=== PATIENT | female | born 1995 | race Two or more races ===

== ENCOUNTER 2021-06-10 19:43 | Emergency (ER) | payer OTHER ==
[~2021-06-10] VITALS: Ht 160 cm; Wt 77.1 kg
[2021-06-10 20:44] LABS: Basophils # (auto) 0 10 ^3/uL (0-0.2); Basophils % (auto) 0.4 % (0.0-2.0); Eosinophils # (auto) 0.2 10 ^3/uL (0-0.8); Eosinophils % (auto) 2.4 % (0.0-7.0); Hemoglobin 13.2 g/dL (12.2-16.2); Lymphocytes % (auto) 30.9 % (10.0-50.0); Mean Corpuscular Hemoglobin 29.9 pg (28.0-32.0); Mean Corpuscular Hgb Conc. 33.7 g/dL (32.0-36.0); Mean Corpuscular Volume 88.6 fL (80.0-100.0); Monocytes # (auto) 0.6 10 ^3/uL (0-1.3); Monocytes % (auto) 6.6 % (0.0-12.0); Neutrophils # (auto) 5.7 10 ^3/uL (1.6-8.6); Neutrophils % (auto) 59.7 % (37.0-80.0); Nucleated Red Blood Cells % 0.1 %; Red Cell Distribution Width 13.4 % (11.8-14.3); White Blood Cell 9.6 10^3/uL (4.4-10.8)
[2021-06-10 20:57] LABS: Urine Bacteria FEW /hpf (None Seen); Urine Blood TRACE /uL (Negative); Urine Specific Gravity 1.026 (1.001-1.035); Urine WBC 2 /hpf (0 - 5)
[2021-06-10] MEDS ORDERED: IBUPROFEN 600 MG TAB PO ONE (23:00)
[2021-06-11 01:46] VITALS: BP 153/72
== END 2021-06-11 01:53 | disposition home or self-care (01) ==
LOC: ER 19:43
DX: N83.201 Unspecified ovarian cyst, right side (principal); Z90.49 Acquired absence of other specified parts of digestive tract; Z88.8 Allergy status to other drugs, medicaments and biological substances; Z88.0 Allergy status to penicillin
CPT/HCPCS: 36415; 76830; 76856; 81001; 84702; 85025

== ENCOUNTER 2022-08-31 12:38 | Emergency (ER) | payer MEDICAID, OTHER ==
[~2022-08-31] VITALS: Ht 160 cm; Wt 84.7 kg
[2022-08-31 13:01] VITALS: BP 126/71
[2022-08-31 13:28] LABS: Urine Bacteria FEW /hpf (None Seen); Urine Blood TRACE /uL (Negative); Urine Hyaline Cast FEW /lpf (0 - 2); Urine Mucus FEW (None Seen); Urine Specific Gravity 1.025 (1.001-1.035); Urine WBC 22 /hpf (0 - 5)
[2022-08-31] MEDS ORDERED: METR500T14 PO (17:14)
[2022-08-31] MEDS ORDERED: DOXY-346 PO (17:14)
[2022-08-31] MEDS ORDERED: DOXYCYCLINE 100 MG TAB/CAP PO ONE (17:15)
[2022-08-31] MEDS ORDERED: cefTRIAXone W LIDOCAINE 500 MG IM IM ONE (17:15)
== END 2022-08-31 20:18 | disposition home or self-care (01) ==
LOC: ER 12:38
DX: N89.8 Other specified noninflammatory disorders of vagina (principal); Z90.49 Acquired absence of other specified parts of digestive tract; Z88.8 Allergy status to other drugs, medicaments and biological substances; Z88.0 Allergy status to penicillin
CPT/HCPCS: 81001; 81025; 87491; 87591; 99283; J0696

== ENCOUNTER 2022-10-13 19:09 | Emergency (ER) | payer MEDICAID, OTHER ==
[~2022-10-13] VITALS: Ht 160 cm; Wt 78.0 kg
[~2022-10-13 19:09] MED LIST: DOXY-346 PO; METR500T14 PO
[2022-10-13 19:29] VITALS: BP 121/88
[2022-10-13] MEDS ORDERED: diphenhdrAMINE HCL 25 MG CAP PO ONE (19:45)
[2022-10-13] MEDS ORDERED: methylPREDNISolone SOD SUCC 125 MG/2 ML VL IM ONE (19:45)
[2022-10-13] MEDS ORDERED: FAMOTIDINE 20 MG TAB PO ONE (19:45)
== END 2022-10-13 23:07 | disposition left against medical advice (07) ==
LOC: ER 19:09
DX: T78.49XA Other allergy, initial encounter (principal); X58.XXXA Exposure to other specified factors, initial encounter
CPT/HCPCS: 96372; 99283; J2930

== ENCOUNTER 2022-11-12 15:12 | Emergency (ER) | payer OTHER ==
[~2022-11-12] VITALS: Ht 160 cm; Wt 77.2 kg
[2022-11-12 15:30] VITALS: BP 122/72
[2022-11-12] MEDS ORDERED: methylPREDNISolone SOD SUCC 125 MG/2 ML VL IM ONE (16:00)
[2022-11-12] MEDS ORDERED: METH4PAK PO (16:14)
[2022-11-12] MEDS ORDERED: EPIN0.1I11 IJ (16:30)
== END 2022-11-12 16:34 | disposition home or self-care (01) ==
LOC: EDBD 15:12 → ER 15:12
DX: T78.40XA Allergy, unspecified, initial encounter (principal); Z88.0 Allergy status to penicillin; Z88.6 Allergy status to analgesic agent; Z90.49 Acquired absence of other specified parts of digestive tract; X58.XXXA Exposure to other specified factors, initial encounter
CPT/HCPCS: 96372; 99283; J2930